=== PATIENT | female | born 2000 | race Caucasian/White ===

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

== ENCOUNTER 2020-02-06 00:03 | Emergency (ER) | payer MEDICAID ==
[2020-02-06] MEDS ORDERED: ONDANSETRON 4 MG TAB.RAPDIS PO ONE (01:08)
--- NOTE | 2020-02-06 01:09 | ER Document Report ---
ED Medical Screen (RME) - General Chief Complaint: Possible Kidney Stone Stated Complaint: RIGHT SIDED FLANK PAIN Time Seen by Provider: 02/06/20 01:03 Primary Care Provider: SEVEN VAZQUEZ NP [Primary Care Provider] - Follow up as needed Mode of Arrival: Ambulatory Information source: Patient Notes: HPI; 20-year-old female presents to the emergency room complaining of right flank pain for the past 2 days nausea with vomiting. Hematuria. History of kidney stones. Denies fevers. PE: Alert and oriented x3. Lungs: Clear to auscultation without rales, rhonchi, wheezes. Heart: Regular rate rhythm without murmurs, rubs, gallops. Positive right CVA tenderness. I have greeted and performed a rapid initial assessment of this patient. A comprehensive ED assessment and evaluation of the patient, analysis of test results and completion of the medical decision making process will be conducted by additional ED providers. I have specifically instructed the patient or family members with the patient to immediately return to any nursing staff should anything change in the patient's condition or with their chief complaint. TRAVEL OUTSIDE OF THE [place] IN LAST 30 DAYS: No - Related Data Allergies/Adverse Reactions: No Known Allergies Allergy (Verified 05/21/16 07:36) Past Medical History Pulmonary Medical History: Reports: Hx Bronchitis Renal/ Medical History: Denies: Hx Peritoneal Dialysis - Immunizations Immunizations up to date: Yes Hx Diphtheria, Pertussis, Tetanus Vaccination: Yes Physical Exam - Vital signs Vitals: Temp Pulse Resp BP Pulse Ox 98.3 F 93 16 117/86 H 99 02/06/20 00:51 02/06/20 00:51 02/06/20 00:51 02/06/20 00:51 02/06/20 00:51 Course - Vital Signs Vital signs: Temp Pulse Resp BP Pulse Ox 98.3 F 93 16 117/86 H 99 02/06/20 00:51 02/06/20 00:51 02/06/20 00:51 02/06/20 00:51 02/06/20 00:51 Doctor's Discharge - Discharge Referrals: SEVEN VAZQUEZ NP [Primary Care Provider] - Follow up as needed
[2020-02-06] MEDS ORDERED: KETOROLAC TROMETHAMINE INJ/PF 30 MG/1 ML SDV IV ONE (01:33)
[2020-02-06] MEDS ORDERED: NORMAL SALINE 1000 ML 1,000 ML IV ONE (01:33)
--- NOTE | 2020-02-06 01:36 | ER Document Report ---
ED GI/ - General Chief Complaint: Flank Pain Stated Complaint: RIGHT SIDED FLANK PAIN Time Seen by Provider: 02/06/20 01:03 Primary Care Provider: SEVEN VAZQUEZ MEDICAL COORDINATOR PESTICIDE USE [NURSE PRACTITIONER] - Follow up as needed Mode of Arrival: Ambulatory Notes: CHIEF COMPLAINT: Right flank pain for 3 days with vomiting HPI: 20-year-old female prior history of 1 kidney stone which she was able to pass presenting with right flank pain for 3 days with vomiting no fever. No specific dysuria no abdominal pain reports pain in the right back with difficulty sitting still. States she is thrown up multiple times over the last 2 to 3 days ROS: See HPI - all other systems were reviewed and are otherwise negative Constitutional: no fever Eyes: no drainage, no blurred vision ENT: no runny nose, no sore throat Cardiovascular: no chest pain Resp: no SOB, no cough GI: + vomiting, no diarrhea, no abdominal pain, positive flank pain : no dysuria Integumentary: no rash Allergy: no hives Musculoskeletal: no extremity pain or swelling Neurological: no numbness/tingling, no weakness MEDICATIONS: I agree with the patient medications as charted by the RN. ALLERGIES: I agree with the allergies as charted by the RN. PAST MEDICAL HISTORY/PAST SURGICAL HISTORY: Reviewed and agree as charted by RN. SOCIAL HISTORY: Reviewed and agree as charted by RN. FAMILY HISTORY: No significant familial comorbid conditions directly related to patient complaint EXAM: Reviewed vital signs as charted by RN. CONSTITUTIONAL: Alert and oriented and responds appropriately to questions. Well-appearing; well-nourished HEAD: Normocephalic; atraumatic EYES: Conjunctivae clear, sclerae non-icteric ENT: normal nose; no rhinorrhea; moist mucous membranes NECK: Supple without meningismus CARD: RRR; no murmurs, no clicks, no rubs, no gallops; symmetric distal pulses RESP: Normal chest excursion without splinting or tachypnea; breath sounds clear and equal bilaterally; no wheezes, no rhonchi, no rales, pulse oximetry 98% on room air not hypoxic ABD/GI: Normal bowel sounds; non-distended; soft, non-tender, no rebound, no guarding; no palpable organomegaly or masses. BACK: The back appears normal and is non-tender to palpation, there is moderate right CVA tenderness EXT: Normal ROM in all joints; non-tender to palpation; no cyanosis, no effusions, no edema SKIN: Normal color for age and race; warm; dry; good turgor; no acute lesions noted NEURO: Moves all extremities equally; Motor and sensory function intact PSYCH: The patient's mood and manner are appropriate. Grooming and personal hygiene are appropriate. MDM: 20-year-old female with right flank pain over the last 3 days with vomiting. Differential would include kidney stone or pyelonephritis. Has no right lower quadrant pain suggesting appendicitis. No abdominal pain at all actually on palpation of the abdomen. Initial screening labs and imaging studies placed in triage process TRAVEL OUTSIDE OF THE [place] IN LAST 30 DAYS: No - Related Data Allergies/Adverse Reactions: No Known Allergies Allergy (Verified 05/21/16 07:36) Past Medical History - General Information source: Patient - Social History Smoking Status: Current Every Day Smoker Family History: Reviewed & Not Pertinent Pulmonary Medical History: Reports: Hx Bronchitis Renal/ Medical History: Denies: Hx Peritoneal Dialysis - Immunizations Immunizations up to date: Yes Hx Diphtheria, Pertussis, Tetanus Vaccination: Yes Physical Exam - Vital signs Vitals: Temp Pulse Resp BP Pulse Ox 98.3 F 93 16 117/86 H 99 02/06/20 00:51 02/06/20 00:51 02/06/20 00:51 02/06/20 00:51 02/06/20 00:51 Course - Re-evaluation Re-evalutation: 02/06/20 04:14 Patient shows a 2 mm distal UVJ stone. Urine does not show definitive evidence of infection. I will add a urine culture. Refer to urology - Vital Signs Vital signs: Temp Pulse Resp BP Pulse Ox 98.3 F 93 16 117/86 H 99 02/06/20 00:51 02/06/20 00:51 02/06/20 00:51 02/06/20 00:51 02/06/20 00:51 - Laboratory Result Diagrams: 02/06/20 01:53 02/06/20 01:53 Laboratory results interpreted by me: 02/06/20 02/06/20 02/06/20 01:53 01:53 01:53 WBC 13.5 H Lymph % (Auto) 7.2 L Absolute Neuts (auto) 11.6 H Seg Neutrophils % 86.0 H Carbon Dioxide 21 L Calcium 10.4 H Total Protein 8.5 H Albumin 5.1 H Urine Protein 30 H Urine Ketones 80 H Urine Blood MODERATE H Ur Leukocyte Esterase TRACE H Discharge - Discharge Clinical Impression: Kidney stone on right side Condition: Stable Disposition: HOME, SELF-CARE Instructions: Kidney Stone ([facility]) Additional Instructions: 1. return to the ED for any fever, back pain or worsening condition 2. hydrate well at home to flush the system. 3. Percocet for pain, no driving if taking Percocet for pain 4. follow up with Urology for further evaluation and treatment Prescriptions: Tamsulosin HCl [Flomax 0.4 mg Cap.sr] 0.4 mg PO DAILY #7 cap.sr.24h Oxycodone HCl/Acetaminophen [Percocet 5-325 mg Tablet] 1 tab PO Q4H PRN #15 tab PRN Reason: Ondansetron [Zofran Odt 4 mg Tablet] 1 - 2 tab PO Q4H PRN #15 tab.rapdis PRN Reason: For Nausea/Vomiting Referrals: SEVEN VAZQUEZ, MEDICAL COORDINATOR PESTICIDE USE [NURSE PRACTITIONER] - Follow up as needed
[2020-02-06 02:11] LABS: ABSOLUTE BASOPHILS # (AUTO) 0.1 10^3/uL (0.0-0.2); ABSOLUTE MONOCYTES (AUTO) 0.9 10^3/uL (0.1-1.4); ABSOLUTE NEUT (AUTO) 11.6 10^3/uL (1.7-8.2); BASOPHILS % (AUTO) 0.5 % (0-2); HEMATOCRIT 41.3 % (36.0-47.0); HEMOGLOBIN 14.1 g/dL (12.0-15.5); LYMPHOCYTES % (AUTO) 7.2 % (13-45); MEAN CORPUSCULAR HEMOGLOBIN 30.5 pg (27.0-33.4); MEAN CORPUSCULAR HGB CONC 34.2 g/dL (32.0-36.0); MEAN CORPUSCULAR VOLUME 89 fl (80-97); MONOCYTES % (AUTO) 6.3 % (3-13); PLATELET COUNT 266 10^3/uL (150-450); RED BLOOD COUNT 4.63 10^6/uL (3.72-5.28); RED CELL DISTRIBUTION WIDTH 12.6 % (11.5-14.0); TOTAL CELLS COUNTED % (AUTO) 100 %; WHITE BLOOD COUNT 13.5 10^3/uL (4.0-10.5)
[2020-02-06 02:37] LABS: ALBUMIN 5.1 g/dL (3.5-5.0); ALKALINE PHOSPHATASE 64 U/L (38-126); ANION GAP 15 (5-19); ASPARTATE AMINO TRANSFERASE 24 U/L (14-36); BILIRUBIN,DIRECT 0.1 mg/dL (0.0-0.4); BILIRUBIN,TOTAL 0.8 mg/dL (0.2-1.3); BLOOD UREA NITROGEN 14 mg/dL (7-20); CALCIUM 10.4 mg/dL (8.4-10.2); CARBON DIOXIDE 21 mmol/L (22-30); CHLORIDE 103 mmol/L (98-107); GLUCOSE 98 mg/dL (75-110); POTASSIUM 3.8 mmol/L (3.6-5.0); TOTAL PROTEIN 8.5 g/dL (6.3-8.2)
[2020-02-06 02:39] LABS: APPEARANCE,URINE SLIGHTLY-CLOUDY; BILIRUBIN,URINE NEGATIVE (NEGATIVE); COLOR,URINE YELLOW; GLUCOSE, URINE NEGATIVE (NEGATIVE); KETONES,URINE 80 mg/dL (NEGATIVE); LEUKOCYTE ESTERASE,URINE TRACE (NEGATIVE); NITRITE,URINE NEGATIVE (NEGATIVE); PROTEIN,URINE 30 mg/dL (NEGATIVE); URINE SPECIFIC GRAVITY 1.027; UROBILINOGEN,URINE NEGATIVE mg/dL (<2.0)
--- NOTE | 2020-02-06 03:40 | RADIOLOGY REPORT (SQ) ---
CT ABDOMEN AND PELVIS WITHOUT INTRAVENOUS CONTRAST: 02/06/2020 2:36 AM WIRE INSULATOR HISTORY: 20-year old with right-sided flank pain. COMPARISON: CT of abdomen and pelvis from 11/01/2019 TECHNIQUE: Axial contiguous images were obtained from the lung bases to the proximal femurs without intravenous contrast administered. Sagittal and coronal reconstructions were also obtained and reviewed. This exam was performed according to our departmental dose-optimization program, which includes automated exposure control, adjustment of the mA and/or KV according to the patient's size and/or use of iterative reconstruction technique. FINDINGS: No focal consolidative airspace opacities are seen. No discrete pleural effusions are seen. Evaluation of the solid organs is limited by the lack of intravenous contrast. The visualized hepatic parenchyma is unremarkable. There is increased density within the gallbladder lumen which may be secondary to sludge or vicarious excretion of contrast. The spleen is within normal limits of size. The pancreas is unremarkable. The bilateral adrenal glands appear unremarkable. There is mild right hydronephrosis secondary to a 2 mm calculus at the distal right ureter. This is just proximal to the ureterovesicular junction. There is some mild stranding around the right kidney, and superimposed infection is not excluded. There are punctate bilateral renal calcifications present. These can be seen with medullary nephrocalcinosis. The urinary bladder is mildly distended, and appears grossly unremarkable. No left ureteral calculi are seen. No bladder calculi are seen. The uterus is present. The stomach is not well distended. The small bowel loops appear unremarkable. No pericolonic inflammatory stranding is seen. The appendix appears unremarkable. There is an appendicolith noted within the appendix. There is no evidence of pneumoperitoneum or free fluid. The aorta and IVC appear normal in size. No significantly enlarged lymph nodes are seen in the abdomen or pelvis. Review of the bone show no evidence of any suspicious lytic or blastic lesions. There is a punctate sclerotic densities seen at the right iliac bone. This likely represents a benign bone island. IMPRESSION: There is mild right hydronephrosis secondary to a 2 mm calculus at the distal right ureter. This is just proximal to the ureterovesicular junction. There is some mild stranding around the right kidney, and superimposed infection is not excluded. There are bilateral renal calcifications again seen.
[2020-02-06] MEDS ORDERED: OXYCODONE-ACETAMINOPHEN 5-325 MG TABLET PO ONE (03:58)
[2020-02-06] MEDS ORDERED: TAMSULOSIN HCL 0.4 MG CAP.SR.24H PO ONE (03:58)
[2020-02-06 04:52] VITALS: BP 110/74
== END 2020-02-06 04:48 | disposition home or self-care (01) ==
LOC: ER 00:03
DX: N20.0 Calculus of kidney (principal); R10.9 Unspecified abdominal pain; R11.10 Vomiting, unspecified; F17.200 Nicotine dependence, unspecified, uncomplicated; Z87.442 Personal history of urinary calculi
CPT/HCPCS: 99285; 96361; 96374; 36415; 87086; 84703; 85025; 80053; 81001; 74176; S0119; J1885; J3490; J7030